=== PATIENT | female | born 2000 | race Caucasian/White ===

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

== ENCOUNTER 2022-05-22 12:18 | Emergency (ER) | payer MEDICAID ==
[~2022-05-22] VITALS: Ht 162 cm; Wt 63.0 kg
--- NOTE | 2022-05-22 12:42 | ED Integumentary General ---
General Chief Complaint: Skin/Wound Problems Stated Complaint: SORE ON CHIN Nursing Triage Note: PT HAS LARGE AREA OF REDNESS, SWELLING, PAIN AND DRAINAGE ON CHIN. STATES HAS HAD FOR 3 DAYS. Source: patient Exam Limitations: no limitations (LELE VERONICA APRN) History of Present Illness Date Seen by Provider: May 22, 2022 Time Seen by Provider: 12:42 Initial Comments 22 y/o female presents today with c/o painful lesion on chin. Pt states it started as a pimple appearing lesion two weeks ago, she tried to pop it but it continues to get larger and more painful over the last 2-3 days. Pt states she has been taking tylenol and motrin but has not taken anything today. She re ports there has been some drainage from the area since yesterday. Timing/Duration: getting worse, other (two weeks, worse x 2-3 days) Severity: moderate Location: face Possible Cause: no cause identified Modifying Factors: improves with scratching Associated Symptoms: No blisters, No fever, No headache, No hives, No malaise, No nasal congestion, No rash, No sore throat (LELE VERONICA APRN) Allergies and Home Medications Allergies Coded Allergies: No Known Drug Allergies (Unverified , 12/06/18) Patient Home Medication List Home Medication List Reviewed: Yes (LELE VERONICA APRN) Mometasone Furoate (Mometasone Furoate) 45 Gm Cream..g., 45 GM TP TID Prescribed by: PARTH STRAUSS on 04/12/202258 Prednisone (Prednisone) 20 Mg Tab, 40 MG PO DAILY Prescribed by: PARTH STRAUSS on 04/12/202258 Sulfamethoxazole/Trimethoprim (Bactrim Ds Tablet) 1 Each Tablet, 1 EACH PO BID Prescribed by: Lele Veronica on 05/22/22 1300 Last Action: New Order Discontinued Medications Sulfamethoxazole/Trimethoprim (Bactrim Ds Tablet) 1 Each Tablet, 1 EACH PO BID Prescribed by: Lele Veronica on 05/22/22 1254 Last Action: Discontinued Review of Systems Review of Systems Constitutional: No chills, No fever, No malaise EENTM: No mouth pain, No mouth swelling, No throat pain, No throat swelling Respiratory: No cough, No short of breath Cardiovascular: no symptoms reported Skin: No dryness, No pruritus, No rash; other (pustular lesion, erythema, and swelling of chin) (LELE VERONICA APRN) Past Kfbdeam-Ujhukw-Qmaagy Hx Patient Social History Tobacco Use?: Yes Tobacco type used: Cigarettes Smoking Status: Current Everyday Smoker Substance use?: No Alcohol Use?: No Pt feels they are or have been: No (LELE VERONICA APRN) Immunizations Up To Date Tetanus Booster (TDap): Less than 5yrs PED Vaccines UTD: Yes (LELE VERONICA APRN) Seasonal Allergies Seasonal Allergies: No (LELE VERONICA APRN) Past Medical History Surgeries: Yes Tonsillectomy Respiratory: No Cardiac: No Neurological: No Reproductive Disorders: No Genitourinary: No Gastrointestinal: No Musculoskeletal: No Endocrine: No HEENT: No Cancer: No Psychosocial: No Integumentary: No Blood Disorders: No (LELE VERONICA APRN) Family Medical History No Pertinent Family Hx (LELE VERONICA APRN) Physical Exam Vital Signs Vital Signs - First Documented 05/22/22 12:36 Temp 37.1 Pulse 84 Resp 18 B/P (MAP) 129/84 (99) Pulse Ox 99 (AARON BEST MD) Vital Signs Capillary Refill : Less Than 3 Seconds (LELE VERONICA APRN) General Appearance: WD/WN, no apparent distress HEENT: No pharynx normal, No pharyngeal erythema, No tonsillar exudate Neck: No non-tender, No full range of motion, No supple, No normal inspection, No lymphadenopathy (R), No lymphadenopathy (L) Cardiovascular: regular rate, rhythm, no edema Respiratory: lungs clear, normal breath sounds Skin: normal color, warm/dry, other (tender pustular lesion on chin with erythema and moderate superficial swelling) Skin Problem Location: face Skin Problem Character: abscess, drainage, erythema, tenderness, thickening Lymphatic: no adenopathy (LELE VERONICA APRN) Progress/Results/Core Measures Results/Orders Medications Given in ED Current Medications Medications Dose Ordered Sig/Juan Diego Route Start Time Stop Time Status Last Admin Dose Admin Acetaminophen 650 mg ONCE ONCE PO 05/22/22 13:00 05/22/22 13:01 DC 05/22/22 13:01 650 MG Ibuprofen 800 mg ONCE ONCE PO 05/22/22 13:00 05/22/22 13:01 DC 05/22/22 13:01 800 MG (AARON BEST MD) Vital Signs/I&O 05/22/22 05/22/22 12:36 13:03 Temp 37.1 Pulse 84 84 Resp 18 18 B/P (MAP) 129/84 (99) 129/84 Pulse Ox 99 99 (AARON BEST MD) Blood Pressure Mean: 99 Progress Progress Note : Progress Note moderate amount of purulent discharge was expressed from the wound, cleaned and dressed with elastic bandage (LELE VERONICA APRN) Departure Impression Primary Impression: Cellulitis Disposition: HOME, SELF-CARE Condition: Stable Departure-Patient Inst. Decision time for Depature: 12:51 (LELE VERONICA APRN) Referrals: [facility] (PCP/Family) Primary Care Physician Patient Instructions: Cellulitis (Skin Infection), Adult (DC) Add. Discharge Instructions: Tylenol 500mg every 4 hours, motrin 60mg every 6 hours as needed. Warm compresses to area as needed. Keep covered if draining. Take Bactrim twice daily for 10 days. Avoid picking at/scratching the area. Wash hands frequently. All discharge instructions reviewed with patient and/or family. Voiced understanding. Scripts Sulfamethoxazole/Trimethoprim (Bactrim Ds Tablet) 1 Each Tablet 1 EACH PO BID for 10 Days, #20 TAB Prov: LELE VERONICA APRN 05/22/22 ATTENDING PHYSICIAN NOTE: I was physically present as attending physician in the emergency department during the care of this patient, but I was not directly involved in the decision making or delivery of care for this patient. (AARON BEST MD) LELE VERONICA APRN May 22, 2022 12:42 AARON BEST MD May 22, 2022 19:35
[2022-05-22] MEDS ORDERED: SULF1TAB38 PO ×2 (12:54→13:00)
[2022-05-22] MEDS ORDERED: ACETAMINOPHEN 325 MG TABLET PO ONE (13:00)
[2022-05-22] MEDS ORDERED: IBUPROFEN 800 MG (MOTRIN) TAB PO ONE (13:00)
[2022-05-22 13:03] VITALS: BP 129/84
== END 2022-05-22 13:03 | disposition home or self-care (01) ==
LOC: EDUNIT# 12:18 → ER 12:21
DX: L03.211 Cellulitis of face (principal); F17.210 Nicotine dependence, cigarettes, uncomplicated; Z28.310 Unvaccinated for COVID-19
CPT/HCPCS: 99283

== ENCOUNTER 2022-08-15 14:38 | Emergency (ER) | payer MEDICAID ==
[~2022-08-15] VITALS: Ht 162.5 cm; Wt 65.7 kg
[~2022-08-15 14:38] MED LIST changes: +SULF1TAB38 PO
--- NOTE | 2022-08-15 15:23 | ED Neurological Problem ---
General Chief Complaint: Neurological Problems Stated Complaint: SEIZURE Nursing Triage Note: pt amb to rm 7 with complaints of having a 10 minute seizure. pts family member stated that she was "shaking, face was blue and black, and spit was coming from her mouth." family member put a wet rag on her and the seizure stopped. pt has hx of seizures since 4-5 yrs old. pt densies hitting head. Source: patient Exam Limitations: no limitations History of Present Illness Date Seen by Provider: Aug 15, 2022 Time Seen by Provider: 15:15 Initial Comments History obtained from patient and family. Patient presents to the emergency department for evaluation after having a witnessed 10-minute seizure. Patient states does not remember the seizure. Family states patient was shaking all over and that her "face was black and blue and she had spit coming out of her mouth". Family state they put a wet rag on the patient's face and her seizure stopped. Patient has a history of seizures but has not had one in 4 to 5 years. Family states the seizure today was consistent with her seizures in the past. Patient is not currently nor has ever been on antiepileptic medications. Family state patient did not fall and hit her head. She denies any pain at this time. Denies any recent alcohol or drug use. The seizure occurred a few hours prior to arrival. Family state patient was very confused and groggy after the seizure ended but is since returned to baseline. No medications were given to stop the seizure. Allergies and Home Medications Allergies Coded Allergies: No Known Drug Allergies (Unverified , 12/06/18) Patient Home Medication List Home Medication List Reviewed: Yes Mometasone Furoate (Mometasone Furoate) 45 Gm Cream..g., 45 GM TP TID Prescribed by: PARTH STRAUSS on 04/12/20 619 Prednisone (Prednisone) 20 Mg Tab, 40 MG PO DAILY Prescribed by: PARTH STRAUSS on 04/12/20 1821 Sulfamethoxazole/Trimethoprim (Bactrim Ds Tablet) 1 Each Tablet, 1 EACH PO BID Prescribed by: Shayy Valdivia on 05/22/22 1300 Review of Systems Review of Systems Constitutional: no symptoms reported Eyes: No Symptoms Reported Ears, Nose, Mouth, Throat: no symptoms reported Respiratory: no symptoms reported Cardiovascular: no symptoms reported Gastrointestinal: no symptoms reported Genitourinary: no symptoms reported Musculoskeletal: no symptoms reported Skin: no symptoms reported Psychiatric/Neurological: See HPI, Tonic Clonic Seizures Endocrine: No Symptoms Reported Hematologic/Lymphatic: No Symptoms Reported Past Qfqxrev-Aiiiwu-Bhxeje Hx Patient Social History Tobacco Use?: Yes Tobacco type used: Cigarettes Substance use?: No Alcohol Use?: No Immunizations Up To Date Tetanus Booster (TDap): Less than 5yrs PED Vaccines UTD: Yes Seasonal Allergies Seasonal Allergies: No Past Medical History Surgeries: Yes Tonsillectomy Respiratory: No Cardiac: No Neurological: No Reproductive Disorders: No Genitourinary: No Gastrointestinal: No Musculoskeletal: No Endocrine: No HEENT: No Cancer: No Psychosocial: No Integumentary: No Blood Disorders: No Family Medical History No Pertinent Family Hx Physical Exam Vital Signs Vital Signs - First Documented 08/15/22 15:06 Pulse 85 B/P (MAP) 116/69 (85) Pulse Ox 100 O2 Delivery Room Air Capillary Refill : Height, Weight, BMI Height: 5'4.00" Weight: 145lbs. oz. [id number]; 24.00 BMI Method: General Appearance: WD/WN, no apparent distress HEENT: PERRL/EOMI, normal ENT inspection, TMs normal, pharynx normal Neck: non-tender, full range of motion, supple, normal inspection Respiratory: chest non-tender, lungs clear, normal breath sounds, no respiratory distress, no accessory muscle use Cardiovascular: regular rate, rhythm Gastrointestinal: normal bowel sounds, non tender, soft Extremities: normal range of motion, no calf tenderness Neurologic/Psychiatric: no motor/sensory deficits, alert, normal mood/affect, oriented x 3 Skin: normal color, warm/dry Progress/Results/Core Measures Results/Orders Lab Results Laboratory Tests Test 08/15/22 15:19 08/15/22 15:40 Range/Units White Blood Count 12.8 H 4.3-11.0 10^3/uL Red Blood Count 4.73 3.80-5.11 10^6/uL Hemoglobin 14.3 11.5-16.0 g/dL Hematocrit 42 35-52 % Mean Corpuscular Volume 90 80-99 fL Mean Corpuscular Hemoglobin 30 25-34 pg Mean Corpuscular Hemoglobin Concent 34 32-36 g/dL Red Cell Distribution Width 12.5 10.0-14.5 % Platelet Count 231 130-400 10^3/uL Mean Platelet Volume 10.2 9.0-12.2 fL Immature Granulocyte % (Auto) 1 % Neutrophils (%) (Auto) 83 H 42-75 % Lymphocytes (%) (Auto) 10 L 12-44 % Monocytes (%) (Auto) 6 0-12 % Eosinophils (%) (Auto) 1 0-10 % Basophils (%) (Auto) 0 0-10 % Neutrophils # (Auto) 10.6 H 1.8-7.8 X 10^3 Lymphocytes # (Auto) 1.3 1.0-4.0 X 10^3 Monocytes # (Auto) 0.8 0.0-1.0 X 10^3 Eosinophils # (Auto) 0.1 0.0-0.3 10^3/uL Basophils # (Auto) 0.0 0.0-0.1 10^3/uL Immature Granulocyte # (Auto) 0.1 0.0-0.1 10^3/uL Sodium Level 139 135-145 MMOL/L Potassium Level 3.6 3.6-5.0 MMOL/L Chloride Level 107 98-107 MMOL/L Carbon Dioxide Level 25 21-32 MMOL/L Anion Gap 7 5-14 MMOL/L Blood Urea Nitrogen 10 7-18 MG/DL Creatinine 0.78 0.60-1.30 MG/DL Estimat Glomerular Filtration Rate 111 BUN/Creatinine Ratio 13 Glucose Level 97 70-105 MG/DL Calcium Level 9.3 8.5-10.1 MG/DL Corrected Calcium 8.9 8.5-10.1 MG/DL Total Bilirubin 0.8 0.1-1.0 MG/DL Aspartate Amino Transf (AST/SGOT) 21 5-34 U/L Alanine Aminotransferase (ALT/SGPT) 21 0-55 U/L Alkaline Phosphatase 64 40-136 U/L Total Protein 7.4 6.4-8.2 GM/DL Albumin 4.5 3.2-4.5 GM/DL Urine Color YELLOW Urine Clarity CLEAR Urine pH 6.0 5-9 Urine Specific [place] >=1.030 1.016-1.022 Urine Protein TRACE H NEGATIVE Urine Glucose (UA) NEGATIVE NEGATIVE Urine Ketones TRACE H NEGATIVE Urine Nitrite NEGATIVE NEGATIVE Urine Bilirubin NEGATIVE NEGATIVE Urine Urobilinogen 0.2 < = 1.0 MG/DL Urine Leukocyte Esterase 1+ H NEGATIVE Urine RBC (Auto) TRACE-I H NEGATIVE Urine RBC NONE /HPF Urine WBC 2-5 /HPF Urine Squamous Epithelial Cells 25-50 H /HPF Urine Crystals NONE /LPF Urine Bacteria LARGE H /HPF Urine Casts NONE /LPF Urine Mucus LARGE H /LPF Urine Culture Indicated YES Urine Opiates Screen NEGATIVE NEGATIVE Urine Oxycodone Screen NEGATIVE NEGATIVE Urine Methadone Screen NEGATIVE NEGATIVE Urine Propoxyphene Screen NEGATIVE NEGATIVE Urine Barbiturates Screen NEGATIVE NEGATIVE Ur Tricyclic Antidepressants Screen NEGATIVE NEGATIVE Urine Phencyclidine Screen NEGATIVE NEGATIVE Urine Amphetamines Screen NEGATIVE NEGATIVE Urine Methamphetamines Screen NEGATIVE NEGATIVE Urine Benzodiazepines Screen POSITIVE H NEGATIVE Urine Cocaine Screen NEGATIVE NEGATIVE Urine Cannabinoids Screen POSITIVE H NEGATIVE Micro Results Microbiology 08/15/22 Urine Culture - Final, Complete >=3 Gram Positive Isolates My Orders Orders - ELADIOPAVELBREANNA BASILIO Cbc With Automated Diff (08/15/22 15:17) Comprehensive Metabolic Panel (08/15/22 15:17) Urinalysis (08/15/22 15:17) Drug Screen Stat (Urine) (08/15/22 15:17) Urine Bedside (08/15/22 15:17) Urine Culture (08/15/22 15:40) Vital Signs/I&O 08/15/22 08/15/22 15:06 17:19 Pulse 85 79 B/P (MAP) 116/69 (85) 108/70 Pulse Ox 100 100 O2 Delivery Room Air Room Air Blood Pressure Mean: 85 Progress Progress Note : Progress Note Patient is nontoxic and well-hydrated on exam. No focal neurologic deficits appreciated. She is awake, alert, and oriented x4 and answers all questions appropriately. Pupils are round and reactive to light. Extraocular movements are intact. She is ambulatory without obvious ataxia. No adventitious lung sounds or increased work of breathing noted. Vital signs are reassuring. Patient and family denies any recent illness or sick symptoms. Patient has not had any recent head trauma. Patient is at baseline at this time per family. Orders placed for CBC, CMP, UDS, urinalysis, and bedside urine . CBC notable for very slight leukocytosis that is likely reactive from the recent seizure. CMP is unremarkable. UDS positive for benzodiazepines and cannabinoids. Bedside test negative. Urinalysis does show leukocyte esterace and bacteriuria without significant pyuria. Patient denies any urinary symptoms and we will abstain from any antimicrobial therapy pending urine culture results. Patient has remained neurologically stable in the emergency department. Family feels comfortable going home. Discussed plan of action if patient seizes again. Follow-up with PCP. Return precautions for urgent symptomology discussed. Family verbalized understanding. Departure Impression Primary Impression: Seizure Disposition: 01 HOME, SELF-CARE Condition: Stable Departure-Patient Inst. Decision time for Depature: 17:00 Referrals: [facility] (PCP/Family) Primary Care Physician Patient Instructions: Seizures, Adult ED Add. Discharge Instructions: Follow-up closely with your regular doctor for further evaluation. All discharge instructions reviewed with patient and/or family. Voiced understanding. BREANNA HENDRICKS APRN Aug 15, 2022 15:22
[2022-08-15 15:28] LABS: BASOPHILS % (AUTO) 0 % (0-10); EOSINOPHILS # (AUTO) 0.1 10^3/uL (0.0-0.3); EOSINOPHILS % (AUTO) 1 % (0-10); HEMATOCRIT 42 % (35-52); HEMOGLOBIN 14.3 g/dL (11.5-16.0); LYMPHOCYTES # (AUTO) 1.3 X 10^3 (1.0-4.0); LYMPHOCYTES % (AUTO) 10 % (12-44); MEAN CORPUSCULAR HEMOGLOBIN 30 pg (25-34); MEAN CORPUSCULAR HGB CONC 34 g/dL (32-36); MEAN CORPUSCULAR VOLUME 90 fL (80-99); MEAN PLATELET VOLUME 10.2 fL (9.0-12.2); MONOCYTES # (AUTO) 0.8 X 10^3 (0.0-1.0); MONOCYTES % (AUTO) 6 % (0-12); NEUTROPHILS # (AUTO) 10.6 X 10^3 (1.8-7.8); NEUTROPHILS % (AUTO) 83 % (42-75); PLATELET COUNT 231 10^3/uL (130-400); WHITE BLOOD COUNT 12.8 10^3/uL (4.3-11.0)
[2022-08-15 15:45] LABS: ALBUMIN 4.5 GM/DL (3.2-4.5); BILIRUBIN,TOTAL 0.8 MG/DL (0.1-1.0); CALCIUM 9.3 MG/DL (8.5-10.1); CREATININE SERUM 0.78 MG/DL (0.60-1.30); POTASSIUM 3.6 MMOL/L (3.6-5.0); TOTAL PROTEIN 7.4 GM/DL (6.4-8.2)
[2022-08-15 16:15] LABS: BILIRUBIN,URINE NEGATIVE (NEGATIVE); CLARITY,URINE CLEAR; COLOR,URINE YELLOW; GLUCOSE, URINE (UA) NEGATIVE (NEGATIVE); KETONES,URINE TRACE (NEGATIVE); LEUKOCYTE ESTERASE ,URINE 1+ (NEGATIVE); NITRITE,URINE NEGATIVE (NEGATIVE); PROTEIN,URINE TRACE (NEGATIVE)
[2022-08-15 16:35] LABS: AMPHETAMINE SCREEN, URINE NEGATIVE (NEGATIVE); BARBITURATE SCREEN URINE NEGATIVE (NEGATIVE); BENZODIAZEPINES SCREEN URINE POSITIVE (NEGATIVE); CANNABINOID SCREEN, URINE POSITIVE (NEGATIVE); COCAINE SCREEN URINE NEGATIVE (NEGATIVE); METHADONE STAT NEGATIVE (NEGATIVE); OPIATE SCREEN URINE NEGATIVE (NEGATIVE); OXYCODONE STAT NEGATIVE (NEGATIVE); PROPOXYPHENE STAT NEGATIVE (NEGATIVE); TRICYCLIC ANTIDEPRESSANTS SCRE NEGATIVE (NEGATIVE)
[2022-08-15 16:55] LABS: BACTERIA,URINE LARGE /HPF; SQUAMOUS EPITHELIAL CELL,UR 25-50 /HPF
[2022-08-15 17:19] VITALS: BP 108/70
== END 2022-08-15 17:17 | disposition home or self-care (01) ==
LOC: EDUNIT# 14:38 → ER 14:41
DX: R56.9 Unspecified convulsions (principal); F17.210 Nicotine dependence, cigarettes, uncomplicated; Z28.310 Unvaccinated for COVID-19
CPT/HCPCS: 36415; 80053; 80306; 81000; 84703; 85025; 87088; 99282

== ENCOUNTER 2023-05-22 14:36 | Emergency (ER) | payer MEDICAID ==
--- NOTE | 2023-05-22 15:02 | ED Lower Extremity ---
General Chief Complaint: Lower Extremity Stated Complaint: LT FOOT INJ Nursing Triage Note: PT TO FT2 WITH C/O L FOOT INJURY AFTER JUMPING INTO A POND ON MONDAY. PT HAS TRIED HEAT WITHOUT RELIEF Source: patient Exam Limitations: no limitations (MARCIO FIGUEROA) History of Present Illness Date Seen by Provider: May 22, 2023 Time Seen by Provider: 15:00 Initial Comments Patient is a 23-year-old female presents ED with left dorsum foot pain. She states last she jumped in a pond after a ball and landed awkwardly on some rocks in the pond. Since then she has had pain to the dorsum side of the foot and plantar side of the foot. Pain is worse with movement or walking. She noticed some swelling. Has been taking anti-inflammatories. She does report some superficial abrasions to the left foot. Denies any redness or swelling around the cuts. Patient is able to ambulate. No obvious deformity. No anta lgic gait. Denies fever chills calf pain, ankle pain, chest pain, shortness of breath (MARCIO FIGUEROA) Allergies and Home Medications Allergies Coded Allergies: No Known Drug Allergies (Unverified , 12/06/18) Patient Home Medication List Home Medication List Reviewed: Yes (MARCIO FIGUEROA) Mometasone Furoate (Mometasone Furoate) 45 Gm Cream..g., 45 GM TP TID Prescribed by: PARTH STRAUSS on 04/12/202258 Prednisone (Prednisone) 20 Mg Tab, 40 MG PO DAILY Prescribed by: PARTH STRAUSS on 04/12/202258 Sulfamethoxazole/Trimethoprim (Bactrim Ds Tablet) 1 Each Tablet, 1 EACH PO BID Prescribed by: Shayy Valdivia on 05/22/22 1300 Review of Systems Constitutional: No chills, No diaphoresis EENTM: No ear pain, No blurred vision, No double vision Respiratory: No cough, No dyspnea on exertion Cardiovascular: No chest pain Gastrointestinal: No abdominal pain, No diarrhea, No dysphagia, No nausea, No vomiting Genitourinary: No decreased output, No discharge Musculoskeletal: No back pain; joint pain, muscle pain Skin: No change in color, No change in hair/nails (MARCIO FIGUEROA) All Other Systems Reviewed Negative Unless Noted: Yes (MARCIO FIGUEROA) Past Aufirgl-Fsmzei-Wefbgu Hx Patient Social History Tobacco Use?: Yes Tobacco type used: Cigarettes Substance use?: No Alcohol Use?: No Pt feels they are or have been: No (MARCIO FIGUEROA) Immunizations Up To Date Tetanus Booster (TDap): Less than 5yrs PED Vaccines UTD: Yes (MARCIO FIGUEROA) Seasonal Allergies Seasonal Allergies: No (MARCIO FIGUEROA) Past Medical History Surgery/Hospitalization HX: TONSILS Surgeries: Yes Tonsillectomy Respiratory: No Cardiac: No Neurological: No Reproductive Disorders: No Genitourinary: No Gastrointestinal: No Musculoskeletal: No Endocrine: No HEENT: No Cancer: No Psychosocial: No Integumentary: No Blood Disorders: No (MARCIO FIGUEROA) Family Medical History No Pertinent Family Hx (MARCIO FIGUEROA) Physical Exam Vital Signs Vital Signs - First Documented 05/22/23 14:52 Temp 37.0 Pulse 86 Resp 16 B/P (MAP) 111/74 (86) Pulse Ox 99 O2 Delivery Room Air (AARON BEST MD) Vital Signs Capillary Refill : (MARCIO FIGUEROA) Height, Weight, BMI Height: 5'4.00" Weight: 145lbs. oz. 65.366566yj; 24.00 BMI Method: General Appearance: WD/WN, no apparent distress HEENT: PERRL/EOMI, normal ENT inspection, TMs normal, pharynx normal Neck: non-tender, full range of motion, supple Cardiovascular: regular rate, rhythm, no edema, no gallop, no JVD Respiratory: chest non-tender, lungs clear, normal breath sounds, no respiratory distress, no accessory muscle use Gastrointestinal: normal bowel sounds, non tender, soft, no organomegaly Hips: bilateral hip non-tender, bilateral hip normal inspection, bilateral hip no evidence of injury Knees: bilateral knee non-tender, bilateral knee normal inspection, bilateral knee normal range of motion Ankles: bilateral ankle non-tender, bilateral ankle normal inspection, bilateral ankle normal range of motion Feet: left foot pain (Left dorsum foot tenderness along the first second metatarsal. Neurovascular intact. Normal range of motion of the digits), left foot soft tissue tenderness, left foot swelling Neurologic/Psychiatric: etiologist II-XII nml as tested, no motor/sensory deficits, alert, normal mood/affect, oriented x 3 Skin: normal color, warm/dry (MARCIO FIGUEROA) Progress/Results/Core Measures Results/Orders Vital Signs/I&O 05/22/23 05/22/23 14:52 15:33 Temp 37.0 37.0 Pulse 86 86 Resp 16 16 B/P (MAP) 111/74 (86) 111/74 Pulse Ox 99 99 O2 Delivery Room Air Room Air (AARON BEST MD) Blood Pressure Mean: 86 Departure Communication (PCP) Injury to the left foot. Exam shows tenderness along the first second metatarsal. Normal range of motion of the digits. No evidence of vascular injury. Neurovascular intact. Dorsalis pedis posterior tibialis +2. No ankle tenderness. X-ray was obtained which did not note any acute fracture. Refuse anything for pain. Concern for foot sprain. Recommend rest ice anti- inflammatories. If any worsening symptoms return back to ED for further evaluation. Orthopedic follow-up in 7 to 10 days if pain progress. Provided discharge instructions for orthopedic outpatient follow up. (MARCIO FIGUEROA) Impression Primary Impression: Foot pain Disposition: 01 HOME, SELF-CARE Condition: Stable Departure-Patient Inst. Decision time for Depature: 15:29 (MARCIO FIGUEROA) Referrals: [facility] (PCP/Family) Primary Care Physician KACEY BUSTAMANTE MD Patient Instructions: Foot Sprain ED Add. Discharge Instructions: Recommend ice, anti-inflammatories rest. Orthopedic follow-up in 7 to 10 days for further evaluation. Concern for foot sprain All discharge instructions reviewed with patient and/or family. Voiced understanding. ATTENDING PHYSICIAN NOTE: I was physically present as attending physician in the emergency department during the care of this patient, but I was not directly involved in the decision making or delivery of care for this patient. (AARON BEST MD) MARCIO FIGUEROA May 22, 2023 15:02 AARON BEST MD May 22, 2023 17:05
--- NOTE | 2023-05-22 15:19 | Diagnostic Imaging Report ---
FOOT, LEFT, 3 VIEWS INDICATION: Dorsal foot pain COMPARISON: None available. TECHNIQUE: 3 views left foot FINDINGS: No fracture or traumatic malalignment. No evidence of metatarsal stress fracture. No soft tissue swelling. IMPRESSION: 1. No acute fracture or traumatic malalignment. Dictated by: Dictated on workstation # [id number]
[2023-05-22 15:33] VITALS: BP 111/74
== END 2023-05-22 15:33 | disposition home or self-care (01) ==
LOC: EDUNIT# 14:36 → ER 14:38
DX: M79.672 Pain in left foot (principal); F17.210 Nicotine dependence, cigarettes, uncomplicated
CPT/HCPCS: 73630